=== PATIENT | male | born 1970 ===

== ENCOUNTER 2017-08-07 10:27 | Inpatient (IN) | payer BC ==
--- NOTE | 2017-08-07 10:56 | ED PDOC ---
HPI: Psych/Substance Abuse Time Seen by Provider: 08/07/17 10:45 Chief Complaint (Nursing): Substance Abuse Chief Complaint (Provider): Substance Abuse History Per: Family () Additional Complaint(s): 46 year old male presents to the emergency department accompanied by after he admitted to taking 12 pills of either Ambien or Remeron. States he had 2 empty bottles of both medications in which were both prescribed and filled with 30 tabs each. Positive for suicidal ideation and suicidal attempt. As per , denies any further medical complaints. Past Medical History Reviewed: Historical Data, Nursing Documentation, Vital Signs Vital Signs: Last Vital Signs Temp 97.6 F 08/07/17 10:36 Pulse 109 H 08/07/17 10:36 Resp 22 08/07/17 10:36 BP 142/94 H 08/07/17 10:36 Pulse Ox 97 08/07/17 10:36 - Medical History PMH: Anxiety, Back Problems, Depression, Hypercholesterolemia, Schizophrenia - Family History Family History: States: Unknown Family Hx - Home Medications Home Medications: Ambulatory Orders Medication Instructions Recorded Ergocalciferol (Vitamin D2) 50,000 unit PO MO 08/07/17 [Vitamin D2] Escitalopram [Lexapro] 40 mg PO DAILY 08/07/17 Gabapentin [Neurontin] 600 mg PO HS 08/07/17 [id number] Ethyl Esters 1 GM 2 gm PO BID 08/07/17 [Lovaza] Zolpidem [Ambien] 10 mg PO HS 08/07/17 metFORMIN [glucOPHAGE] 500 mg PO DAILY 08/07/17 - Allergies Allergies/Adverse Reactions: Allergies Allergy/AdvReac Type Severity Reaction Status Date / Time No Known Allergies Allergy Verified 08/07/17 10:36 Review of Systems Review Of Systems: ROS cannot be obtained secondary to pt's inabilty to answer questions. (unresponsive) Physical Exam - Reviewed Nursing Documentation Reviewed: Yes Vital Signs Reviewed: Yes - Physical Exam Appears: Positive for: No Acute Distress Skin: Positive for: Normal Color, Warm, Dry Eye Exam: Positive for: Other (Pinpoint pupils bilaterally) Cardiovascular/Chest: Positive for: Regular Rate, Rhythm. Negative for: Murmur Respiratory: Positive for: Normal Breath Sounds. Negative for: Accessory Muscle Use, Respiratory Distress Extremity: Positive for: Normal ROM (Moving all extremities). Negative for: Pedal Edema Neurologic/Psych: Positive for: Oriented (x2), Other (Lethargic but responsive to verbal stimuli) - Laboratory Results Result Diagrams: 08/08/17 07:24 08/07/17 11:15 - ECG O2 Sat by Pulse Oximetry: 97 (RA) Pulse Ox Interpretation: Normal Medical Decision Making Medical Decision Making: Time: 1054 Initial Impression: Drug overdose and suicide attempt Initial Plan: --Consult poison control ordered --EKG --Acetaminophen --Alcohol Serum --CMP --Drug Screen, Urine --Salicylate --CBC w/ diff --Urinalysis --Chest x-ray --Reevaluation Time: 1200 --Poison control stated to watch over patient for the next several hours. Advised to check for Tylenol and alcohol levels. Time: 1252 --chest x-ray FINDINGS: LUNGS: Clear. PLEURA: No pneumothorax or pleural fluid seen. CARDIOVASCULAR: No radiographic findings to suggest acute or significant cardiovascular disease. OSSEOUS STRUCTURES: No significant abnormalities. VISUALIZED UPPER ABDOMEN: Normal. OTHER FINDINGS: None. IMPRESSION: No active disease. Time: 1500 --Patient transferred to Dr. Moreno. --Pending crisis and reassessment. Scribe Attestation: Documented by Neela Mercedes, acting as a scribe for Janie Roa MD. Provider Scribe Attestation: All medical record entries made by the Scribe were at my direction and personally dictated by me. I have reviewed the chart and agree that the record accurately reflects my personal performance of the history, physical exam, medical decision making, and the department course for this patient. I have also personally directed, reviewed, and agree with the discharge instructions and disposition. Disposition - Clinical Impression Clinical Impression: Schizophrenia - Disposition Disposition: Transfer of Care (Dr. Moreno) Disposition Time: 15:00 Condition: STABLE Patient Signed Over To: Jorge Moreno Handoff Comments: Pending Crisis evaluation.
[2017-08-07 11:30] LABS: URINE BILIRUBIN NEGATIVE (NEGATIVE); URINE BLOOD NEGATIVE (NEGATIVE); URINE CLARITY CLEAR (Clear); URINE COLOR YELLOW (YELLOW); URINE GLUCOSE (UA) NEG (Normal); URINE LEUKOCYTE ESTERASE NEG Leu/uL (Negative); URINE PROTEIN NEGATIVE (NEGATIVE); URINE UROBILINOGEN 0.2-1.0 mg/dL (0.2-1.0)
[2017-08-07 11:31] LABS: BASO % 0.5 % (0.0-2.0); HEMOGLOBIN 13.6 g/dL (12.0-18.0); LYMPH # 1.6 K/uL (1.0-4.3); MEAN CELL VOLUME 84.9 fl (80.0-94.0); MEAN CORPUSCULAR HEMOGLOBIN 28.4 pg (27.0-31.0); MEAN CORPUSCULAR HGB CONC 33.4 g/dL (33.0-37.0); MEAN PLATELET VOLUME 10.9 fl (7.2-11.7); MONO # 0.4 K/uL (0.0-0.8); MONO % 5.7 % (0.0-10.0); NEUT # 4.2 K/uL (1.8-7.0); NEUT % 67.8 % (50.0-75.0); RBC 4.78 Mil/uL (4.40-5.90); WHITE BLOOD COUNT 6.2 K/uL (4.8-10.8)
[2017-08-07 11:39] LABS: ACETAMINOPHEN < 10.0 ug/ml (10.0-30.0); ALB/GLOB RATIO 1.5 (1.0-2.1); ALBUMIN 4.9 g/dL (3.5-5.0); ALT/SGPT 57 U/L (21-72); AST/SGOT 27 U/L (17-59); BLOOD UREA NITROGEN 9 mg/dl (9-20); CALCIUM 10.3 mg/dL (8.4-10.2); GFR AFRICAN-AMERICAN > 60; GFR NON-AFRICAN AMERICAN > 60; SALICYLATE < 1.0 mg/dl
[2017-08-07 12:02] LABS: BARBITURATES, UR NEGATIVE (NEGATIVE); BENZODIAZEPINES, UR NEGATIVE (NEGATIVE); OPIATES, UR NEGATIVE (NEGATIVE); PHENCYCLIDINE, UR NEGATIVE (NEGATIVE)
--- NOTE | 2017-08-07 12:54 | RAD ---
PROCEDURE: CHEST RADIOGRAPH, 1 VIEW HISTORY: OD COMPARISON: None available. FINDINGS: LUNGS: Clear. PLEURA: No pneumothorax or pleural fluid seen. CARDIOVASCULAR: No radiographic findings to suggest acute or significant cardiovascular disease. OSSEOUS STRUCTURES: No significant abnormalities. VISUALIZED UPPER ABDOMEN: Normal. OTHER FINDINGS: None. IMPRESSION: No active disease.
--- NOTE | 2017-08-07 15:14 | ED PDOC ---
- Laboratory Results Result Diagrams: 08/07/17 11:15 08/07/17 11:15 - ECG O2 Sat by Pulse Oximetry: 97 (RA) Pulse Ox Interpretation: Normal Medical Decision Making Medical Decision Making: Time: 1500 --Patient endorsed from Dr. Roa to me. --Pending medical clearance before crisis and reassessment. Vital signs are stable. Labs reviewed. In my opinion there are no current acute medical conditions that contraindicate the placement of this patient in a psychiatric unit. Per crisis patient will be admitted to Dr Ruvalcaba for schizophrenia Scribe Attestation: Documented by Neela Mercedes, acting as a scribe for Jorge Moreno MD. Provider Scribe Attestation: All medical record entries made by the Scribe were at my direction and personally dictated by me. I have reviewed the chart and agree that the record accurately reflects my personal performance of the history, physical exam, medical decision making, and the department course for this patient. I have also personally directed, reviewed, and agree with the discharge instructions and disposition. Disposition Doctor Will See Patient In The: Hospital Counseled Patient/Family Regarding: Studies Performed, Diagnosis - Clinical Impression Clinical Impression: Schizophrenia - POA Present On Arrival: None - Disposition Disposition: Admitted as In-Patient Disposition Time: 17:19 Condition: FAIR
[2017-08-07] MEDS ORDERED: Sodium Chloride 0.9% 1,000 ML IV STA ×2 (18:46)
[2017-08-07] MEDS ORDERED: Alum-Mag Hydrox-Simethicone Susp (30 mL) PO PRN (21:34)
[2017-08-07] MEDS ORDERED: Magnesium Hydroxide Susp 30 ml UD PO PRN (21:34)
[2017-08-07] MEDS ORDERED: DiphenhydrAMINE 50 mg/ml Inj IM PRN (21:34)
--- NOTE | 2017-08-07 22:30 | PCM.BM ---
<Kym Lucas - Last Filed: 08/07/17 22:27> Treatment Plan Problems - Problems identified on initial assessmt Suicidal Ideation Date Initiated: 08/07/17 Time Initiated: 22:27 Assessment reference: NA Status: Active Self Harm Date Initiated: 08/07/17 Time Initiated: 22:28 Assessment reference: NA Status: Active Hoplessness/ Helplessness Date Initiated: 08/07/17 Time Initiated: 22:28 Assessment reference: NA Status: Active Treatment assets and liabiliti Patient Assests: cooperative, self-reliant, ADL independent, good support system Patient Liabilities: relationship conflicts, medical problems - Milieu Protocol Maintain good personal hygiene: daily Encourage regular showers, every shift Remind patient to perform daily oral care Conduct patient checks and document Observation sheet: Q15 minutes Maintain personal safety: every shift Educate patient to report safety concerns to staff, every shift Monitor environment for contraband/sharps Medication safety: Monitor for expected outcome, potential side effects: every shift, Assess barriers to learning: every shift, Assess readiness for medication education: every shift <Deborah Rader - Last Filed: 08/11/17 16:32> Treatment assets and liabiliti Patient Assests: adapts well, cooperative, self-reliant, ADL independent, physically healthy, good support system, negotiates basic needs, good past tx response, cognitively intact, strong byron Patient Liabilities: relationship conflicts, other (limited insight into precursors to hospitalization) Family Contact Family involvement: Family/SO is involved Family contact: Patient agrees to contact, Family has been contacted by patient , Family meeting planned to review treatment plan Family contact name: Alysha()([phone]) Family contacted how many times per week?: 2 Family contact comment: Multimedia Editor met with patient and his during visitation hours on 08/10 to discuss precursors to hospitalization, progress on 3NP and aftercare. Pts reported believing that patients overdose was impulsive and pt. did not have intentions to end life. Multimedia Editor provided clinical updates and explained need for further stabilization through medication management and group /supportive therapy. Multimedia Editor emphasized importance of compliance with aftercare to ensure safety in the community and reduce risk of future hospitalizations. Pts reported having been in contact with Dr. Liriano who stated he will being seeing patient with more frequency upon discharge. Multimedia Editor to continue providing pts with clinical updates regarding progress on 3NP and discharge planing. - Outside Agency Agency 1 Care involvment: Following patient during stay, Information-sharing Agency contact name: Liriano Agency contact number: - Goals for Treatment Patient goals for treatment: Patient to continue stabilization on 3NP through medication management and group/supportive therapy. Patient to be encouraged to attend groups regularly to promote self-awareness, compliance, and improve insight, coping skills and self-esteem. Patient to be provided with referral for appropriate level of aftercare to reduce risk of future hospitalizations and ensure safety in the community. Discharge/Continuing Care - Education Needs Education Needs: Family Medication, Family Coping Skills, Family Community resources, Family Aftercare Safety Plan, Patient Medication, Patient Coping Skills, Patient Community resources, Patient Aftercare Safety Plan - Discharge Discharge Criteria: Tolerates medication w/o severe side effects, Free of Suicidal thoughts, Normal sleep pattern, Ability to care for self, Reduction of target symptoms Discharge to:: Home, With Family - Treatment Team Participation Patient/Family/SO Statement: 08/11/17 16:35 Patient superficially cooperative but pleasant during tx team. Pt. AOX4 with constricted affect and fair eye contact. Pt. well-groomed with fair ADLs. Thoughts are clear and connected. Speech: normal rate and tone. Pt. remains anxious and depressed but to a lesser degree. Pt. expressed remorse towards attempt but continues to minimize precursors to hospitalization "I swear on my savior I will never do this again. Focus is fair. Insight limited. Coping skills/Judgment impaired Pt. denies SI/HI and is able to contract for safety on 3NP. Pt. visible on unit and observed socializing appropriately with select peers. Pt. agreeable to recommended medication changes. Pt. remains discharge focused. Discussed with Family/SO: No Was Patient/Family/SO present at Treatment Team Meeting: Yes <Jason Ruvalcaba - Last Filed: 08/12/17 14:51> - Diagnosis (1) Depression Status: Acute Interventions: 08/12/17 14:50 psychotherapy, pharmacotherapy
[2017-08-08] MEDS: Insulin Lispro (humaLOG) 100 Units/ml Inj SC SCH ×4 (06:39→21:31)
[2017-08-08 07:41] LABS: BASO % 0.5 % (0.0-2.0); EOS % 0.9 % (0.0-4.0); HEMOGLOBIN 13.5 g/dL (12.0-18.0); LYMPH # 1.9 K/uL (1.0-4.3); LYMPH % 37.1 % (20.0-40.0); MEAN CELL VOLUME 85.4 fl (80.0-94.0); MEAN CORPUSCULAR HEMOGLOBIN 28.4 pg (27.0-31.0); MEAN CORPUSCULAR HGB CONC 33.3 g/dL (33.0-37.0); MEAN PLATELET VOLUME 10.3 fl (7.2-11.7); MONO # 0.4 K/uL (0.0-0.8); MONO % 8.9 % (0.0-10.0); NEUT # 2.6 K/uL (1.8-7.0); NEUT % 52.6 % (50.0-75.0); NRBC % 0.1 % (0.0-0.0); RBC 4.73 Mil/uL (4.40-5.90)
[2017-08-08 08:06] LABS: T4 7.03 ug/dl (5.5-11.0)
[2017-08-08] MEDS: Omega-3-Acid Ethyl Esters 1 GM Cap PO SCH ×2 (09:52→18:04)
--- NOTE | 2017-08-08 11:23 | CP.PCM.HP ---
History of Present Illness - History of Present Illness History of Present Illness: CC: Drug Overdose History of Present Illness: 46 year old male with H/O DMII and Schizophrenia presents to the emergency department accompanied by after he admitted to taking 12 pills of either Ambien or Remeron. States he had 2 empty bottles of both medications in which were both prescribed and filled with 30 tabs each. Positive for suicidal ideation and suicidal attempt. As per , denies any further medical complaints. Present on Admission - Present on Admission Any Indicators Present on Admission: No Review of Systems - Review of Systems All systems: reviewed and no additional remarkable complaints except - Psychiatric Psychiatric: As Per HPI Past Patient History - Infectious Disease Hx of Infectious Diseases: None - Past Medical History & Family History Past Medical History?: Yes Past Family History: Reviewed and not pertinent - Past Social History Smoking Status: Unknown If Ever Smoked Alcohol: Occasional Drugs: Denies - CARDIAC Hx Cardiac Disorders: Yes (hypercholesterolemia) Hx Hypercholesterolemia: Yes - PULMONARY Hx Respiratory Disorders: No Hx Tuberculosis: No - NEUROLOGICAL Hx Neurological Disorder: No HX Cerebrovascular Accident: No Hx Seizures: No - HEENT Hx HEENT Problems: No - RENAL Hx Chronic Kidney Disease: No Other/Comment: urinary retention - ENDOCRINE/METABOLIC Hx Diabetes Mellitus Type 2: Yes - HEMATOLOGICAL/ONCOLOGICAL Hx Blood Disorders: No Hx Cancer: No Hx Human Immunodeficiency Virus (HIV): No - INTEGUMENTARY Hx Dermatological Problems: No - MUSCULOSKELETAL/RHEUMATOLOGICAL Hx Musculoskeletal Disorders: Yes (herniated disk, back pain) Hx Herniated Disk: Yes (3,lower back) - GASTROINTESTINAL Hx Constipation: Yes (last bm=08/05/17) - GENITOURINARY/GYNECOLOGICAL Hx Genitourinary Disorders: No Hx Sexually Transmitted Disorders: No - PSYCHIATRIC Hx Bipolar Disorder: Yes Hx Depression: Yes Hx Physical Abuse: No Hx Schizophrenia: Yes Hx Sexual Abuse: No Hx Substance Use: No - SURGICAL HISTORY Hx Surgeries: Yes (2005 back surgery) Other/Comment: back surgery - ANESTHESIA Hx Anesthesia: Yes Hx Anesthesia Reactions: No Hx Malignant Hyperthermia: No Meds Allergies/Adverse Reactions: Allergies Allergy/AdvReac Type Severity Reaction Status Date / Time No Known Allergies Allergy Verified 08/07/17 10:36 Physical Exam - Constitutional Appears: Well, No Acute Distress - Head Exam Head Exam: ATRAUMATIC, NORMAL INSPECTION, NORMOCEPHALIC - Eye Exam Eye Exam: EOMI, Normal appearance, PERRL Pupil Exam: NORMAL ACCOMODATION, PERRL - ENT Exam ENT Exam: Mucous Membranes Moist, Normal Exam - Neck Exam Neck exam: Positive for: Normal Inspection - Respiratory Exam Respiratory Exam: Clear to Auscultation Bilateral, NORMAL BREATHING PATTERN - Cardiovascular Exam Cardiovascular Exam: REGULAR RHYTHM, +S1, +S2 - GI/Abdominal Exam GI & Abdominal Exam: Normal Bowel Sounds, Soft. absent: Tenderness - Extremities Exam Extremities exam: Positive for: full ROM, normal capillary refill, normal inspection - Back Exam Back exam: FULL ROM, NORMAL INSPECTION. absent: CVA tenderness (L), CVA tenderness (R) - Neurological Exam Neurological exam: Alert, CN II-XII Intact, Normal Gait, Oriented x3, Reflexes Normal - Psychiatric Exam Psychiatric exam: Depressed, Suicidal Ideation Additional comments: Auditory Hallucinations. - Skin Skin Exam: Dry, Intact, Normal Color, Warm Results - Vital Signs Recent Vital Signs: Last Vital Signs Temp 98.1 F 08/08/17 09:00 Pulse 94 H 08/08/17 09:00 Resp 20 08/08/17 09:00 BP 131/80 08/08/17 09:00 Pulse Ox 99 08/07/17 20:11 - Labs Result Diagrams: 08/08/17 07:24 08/07/17 11:15 Labs: Laboratory Results - last 24 hr 08/07/17 08/07/17 08/07/17 11:15 11:15 11:15 WBC 6.2 RBC 4.78 Hgb 13.6 Hct 40.6 MCV 84.9 MCH 28.4 MCHC 33.4 RDW 14.0 Plt Count 183 MPV 10.9 Neut % (Auto) 67.8 Lymph % (Auto) 26.0 [place] % (Auto) 5.7 Eos % (Auto) 0.0 Baso % (Auto) 0.5 Neut # (Auto) 4.2 Lymph # (Auto) 1.6 [place] # (Auto) 0.4 Eos # (Auto) 0.0 Baso # (Auto) 0.0 Sodium 146 Potassium 4.3 Chloride 100 Carbon Dioxide 27 Anion Gap 23 H BUN 9 Creatinine 1.0 Est GFR ( Amer) > 60 Est GFR (Non-Af Amer) > 60 POC Glucose (mg/dL) Random Glucose 112 H Calcium 10.3 H Total Bilirubin 0.8 AST 27 ALT 57 Alkaline Phosphatase 64 Total Protein 8.2 Albumin 4.9 Globulin 3.3 Albumin/Globulin Ratio 1.5 Triglycerides Cholesterol LDL Cholesterol Direct HDL Cholesterol Prostate Specific Ag Vitamin B12 Thyroxine (T4) TSH 3rd Generation Urine Color Urine Clarity Urine pH Ur Specific [place] Urine Protein Urine Glucose (UA) Urine Ketones Urine Blood Urine Nitrate Urine Bilirubin Urine Urobilinogen Ur Leukocyte Esterase Urine RBC (Auto) Urine Microscopic WBC Salicylates < 1.0 Urine Opiates Screen Urine Methadone Screen Acetaminophen < 10.0 L Ur Barbiturates Screen Ur Phencyclidine Scrn Ur Amphetamines Screen U Benzodiazepines Scrn U Oth Cocaine Metabols U Cannabinoids Screen Alcohol, Quantitative < 10 08/07/17 08/07/17 08/08/17 11:15 11:15 06:38 WBC RBC Hgb Hct MCV MCH MCHC RDW Plt Count MPV Neut % (Auto) Lymph % (Auto) [place] % (Auto) Eos % (Auto) Baso % (Auto) Neut # (Auto) Lymph # (Auto) [place] # (Auto) Eos # (Auto) Baso # (Auto) Sodium Potassium Chloride Carbon Dioxide Anion Gap BUN Creatinine Est GFR ( Amer) Est GFR (Non-Af Amer) POC Glucose (mg/dL) 85 Random Glucose Calcium Total Bilirubin AST ALT Alkaline Phosphatase Total Protein Albumin Globulin Albumin/Globulin Ratio Triglycerides Cholesterol LDL Cholesterol Direct HDL Cholesterol Prostate Specific Ag Vitamin B12 Thyroxine (T4) TSH 3rd Generation Urine Color Yellow Urine Clarity Clear Urine pH 6.0 Ur Specific [place] 1.010 Urine Protein Negative Urine Glucose (UA) Neg Urine Ketones Negative Urine Blood Negative Urine Nitrate Negative Urine Bilirubin Negative Urine Urobilinogen 0.2-1.0 Ur Leukocyte Esterase Neg Urine RBC (Auto) 1 Urine Microscopic WBC < 1 Salicylates Urine Opiates Screen Negative Urine Methadone Screen Negative Acetaminophen Ur Barbiturates Screen Negative Ur Phencyclidine Scrn Negative Ur Amphetamines Screen Negative U Benzodiazepines Scrn Negative U Oth Cocaine Metabols Negative U Cannabinoids Screen Negative Alcohol, Quantitative 08/08/17 08/08/17 07:24 07:24 WBC 5.0 RBC 4.73 Hgb 13.5 Hct 40.4 MCV 85.4 MCH 28.4 MCHC 33.3 RDW 14.0 Plt Count 167 MPV 10.3 Neut % (Auto) 52.6 Lymph % (Auto) 37.1 [place] % (Auto) 8.9 Eos % (Auto) 0.9 Baso % (Auto) 0.5 Neut # (Auto) 2.6 Lymph # (Auto) 1.9 [place] # (Auto) 0.4 Eos # (Auto) 0.0 Baso # (Auto) 0.0 Sodium Potassium Chloride Carbon Dioxide Anion Gap BUN Creatinine Est GFR ( Amer) Est GFR (Non-Af Amer) POC Glucose (mg/dL) Random Glucose Calcium Total Bilirubin AST ALT Alkaline Phosphatase Total Protein Albumin Globulin Albumin/Globulin Ratio Triglycerides 142 Cholesterol 188 LDL Cholesterol Direct 151 H HDL Cholesterol 35 Prostate Specific Ag 1.04 Vitamin B12 256 Thyroxine (T4) 7.03 TSH 3rd Generation 1.84 Urine Color Urine Clarity Urine pH Ur Specific [place] Urine Protein Urine Glucose (UA) Urine Ketones Urine Blood Urine Nitrate Urine Bilirubin Urine Urobilinogen Ur Leukocyte Esterase Urine RBC (Auto) Urine Microscopic WBC Salicylates Urine Opiates Screen Urine Methadone Screen Acetaminophen Ur Barbiturates Screen Ur Phencyclidine Scrn Ur Amphetamines Screen U Benzodiazepines Scrn U Oth Cocaine Metabols U Cannabinoids Screen Alcohol, Quantitative - EKG Data EKG shows normal: Sinus rhythm, [place], Intervals, QRS complexes Rate: Normal Assessment & Plan (1) Schizophrenia Assessment and Plan: Suicidal Attempt with Drug Overdose Continue Treatment as per Psych Recommendations Status: Acute Priority: High (2) DMII (diabetes mellitus, type 2) Assessment and Plan: Continue Metformin Accu-check with Low Coverage HgA1C Fasting lipid Profile Status: Chronic Priority: Low
--- NOTE | 2017-08-08 13:46 | CARD ---
APPROVED REPORT EKG Measurement Heart [id number] [id number] <Conclusion> Sinus rhythm Minimal voltage criteria for LVH, may be normal variant Nonspecific T wave abnormality Abnormal ECG
--- NOTE | 2017-08-08 14:01 | PCM.PSYCH ---
Initial Psychiatric Evaluation - Initial Psychiatric Evaluation Type of Admission: Voluntary Legal Status: Capacity Chief Complaint (in patient's own words): I lost hope, both my children do not want to know me Patient's Reaction to Hospitalization: pt requested help History of Present Illness and Precipitating Events: Pt is a 46 year old, , , Male referred to ED secondary to Suicide Attempt by overdose on ambien and xanax pt with previous diagnosis of schizophrenia 4years ago, following up with private psychaitrist with questionable compliance, pt reported has been feeling increasingly depressed hopless and helpless as his two teen age children refuse to have any relation with him , not answering his phone calls and to talk to him pt is also from his , currently unable to work , on disability pt on day of evaluation became hopless finding no reason to live and attempted suicide by overdose pt reported early insomnia poor appetite and low energy, pt on evaluation observed internally preoccupied talking to self pt denied command hallucinations reported passive suicidal ideations without plan or intent on the unit denied homicidal ideations or substance use Current Medications: Active Medications Generic Name Dose Route Start Last Admin Trade Name Freq PRN Reason Stop Dose Admin Acetaminophen 650 mg 08/07/17 21:34 Tylenol 325mg Tab PO Q4 PRN Pain, moderate (4-7) Al Hydrox/Mg Hydrox/Simethicone 30 ml 08/07/17 21:34 Maalox Plus 30 Ml PO Q4 PRN Dyspepsia Atorvastatin Calcium 20 mg 08/08/17 22:00 Lipitor PO HS DEEPTI Diphenhydramine HCl 50 mg 08/07/17 21:34 Benadryl IM Q6 PRN Extrapyramidal S/S Unable PO Diphenhydramine HCl 50 mg 08/07/17 21:34 Benadryl PO Q6 PRN Extrapyramidal Symptoms Diphenhydramine HCl 50 mg 08/07/17 21:37 Benadryl PO HS PRN Sleep Ergocalciferol 1 cap 08/11/17 06:40 Drisdol 50,000 Intl Units Cap PO MO DEEPTI Gabapentin 200 mg 08/08/17 09:00 08/08/17 13:37 Neurontin PO 200 mg TID DEEPTI Administration Haloperidol 5 mg 08/07/17 21:34 Haldol PO Q4 PRN Agitation Haloperidol Lactate 5 mg 08/07/17 21:34 Haldol IM Q4 PRN Agitation, Unable to Take PO Insulin Human Lispro 0 units 08/08/17 07:30 08/08/17 13:30 Humalog SC Not Given ACHS DEEPTI Protocol Lorazepam 2 mg 08/07/17 21:34 Ativan IM Q4 PRN Anxiety/Agitation,Unable PO Lorazepam 2 mg 08/07/17 21:34 Ativan PO Q4 PRN Anxiety/Agitation Magnesium Hydroxide 30 ml 08/07/17 21:34 Milk Of Magnesia PO HS PRN Constipation Metformin HCl 500 mg 08/08/17 08:00 08/08/17 09:52 Glucophage PO 500 mg BIDWM DEEPTI Administration Mirtazapine 15 mg 08/08/17 22:00 Remeron PO HS DEEPTI [id number] Ethyl Esters 2 gm 08/08/17 09:00 08/08/17 09:52 Lovaza PO 2 gm BID DEEPTI Administration Risperidone 0.5 mg 08/08/17 14:00 Risperdal Tab PO DAILY DEEPTI Risperidone 0.5 mg 08/08/17 22:00 Risperdal Tab PO HS DEEPTI Sennosides 8.6 mg 08/08/17 22:00 Senokot Tab PO HS DEEPTI Tamsulosin HCl 0.4 mg 08/08/17 09:00 08/08/17 09:52 Flomax PO 0.4 mg DAILY DEEPTI Administration Past Psychiatric History - Past Psychiatric History Explanation of prior treatment: diagnosed with schizophrenia 4 years ago History of ETOH/Drug Use: denied Pertinent Medical Hx (Current Medical&Sleep Prob, Allergies): Allergies Allergy/AdvReac Type Severity Reaction Status Date / Time No Known Allergies Allergy Verified 08/07/17 10:36 Ergocalciferol (Vitamin D2) [Vitamin D2] 50,000 unit PO MO 08/07/17 Escitalopram [Lexapro] 40 mg PO DAILY 08/07/17 Gabapentin [Neurontin] 600 mg PO HS 08/07/17 [id number] Ethyl Esters 1 GM [Lovaza] 2 gm PO BID 08/07/17 Zolpidem [Ambien] 10 mg PO HS 08/07/17 metFORMIN [glucOPHAGE] 500 mg PO DAILY 08/07/17 Mental Status Examination - Personal Presentation Personal Presentation: Looks stated age - Affect Affect: Constricted, Depressed - Motor Activity Motor Activity: Psychomotor Retardation - Reliability in Providing Information Reliability in Providing Information: Poor, due to alteration in thoughts, Poor , due to altered mood - Speech Speech: Relevant - Mood Mood: Depressed, Anxious - Formal Thought Process Formal Thought Process: Circumstantial - Hallucinations/Delusions Additional comments: pt observed internally preoccupied denied command hallucinations - Obsessions/Compulsions Obsessions: No Compulsions: No - Cognitive Functions Orientation: Person, Place Sensorium: Alert Abstract Thinking: [place] Judgement: Imparied, as evidence by: Poor judgement - Risk Risk: Suicidal, Diminished functioning - Strength & Assets Inventory Strength & Assets Inventory: Life experience - Limitations Additional comments: questionable compliance DSM 5 DX - DSM 5 DSM 5 Diagnosis: schizophrenia depression - Recommended/Plan of Treatment Treatment Recommendations and Plan of Treatment: remeron 15mg qhs risperidone 0.5mg bid with plan to uptitrate neurontin 200mg tid follow up on psychopharmacological effects and side effect profile group and supportive therapy
[2017-08-09] MEDS: Insulin Lispro (humaLOG) 100 Units/ml Inj SC SCH ×4 (06:50→21:11)
--- NOTE | 2017-08-09 08:21 | PCM.PYCHPN ---
Psychiatric Progress Note - Psychiatric Progress Note Patient seen today, length of contact: Patient evaluated, chart reviewed Patient Chief Complaint: "Me bobo de la fuente." Problems Identified/Issues Discussed: Patient reports that he feels "very well" and does not believe he needs to be in the hospital. He was offered the 48 hour letter, but he declined to sign it and agreed to stay for continued treatment. He denies current SI/HI. He reports that he attemped suicide because he felt like his kids hated him, but he spoke with his kids and they reassured him that that is not true. He was agreeable to increasing the Risperdal. He continues to have AH that sounds like a cricket. Denies other AH/VH/paranoia. Medication Change: Yes (Increase Risperdal) Medical Record Reviewed: Yes Consults ordered or reviewed: Medicine consult Mental Status Examination - Cognitive Function Orientation: Person, Place, Situation Memory: Intact Attention: WNL Concentration: WNL Association: WN Fund of Knowledge: [facility] Decription of patient's judgement and insights: Poor I/J - Mood Mood: Neutral - Affect Affect: Other (Inappropriately happy) - Speech Speech: Appropriate - Formal Thought Process Formal Thought Process: Hallucinations Psychotic Thoughts and Behaviors: Hears cricket sounds - Suicidal Ideation Suicidal Ideation: No - Homicidal Ideation Homicidal Ideation: No Goal/Treatment Plan - Goal/Treatment Plan Need for Continued Stay: Remain at risks for inpatient hospitalization, Discharge may exacerbated symptoms Progress Toward Problem(s) and Goals/Treatment Plan: Schizophrenia; Depression -Individual and group therapy -Continue Remeron -Increase Risperdal to 1 mg PO Q12 -Continue Neurontin -Medicine consult -Psychoeducation -Disposition planning Estimated Date of D/C: 08/12/17
[2017-08-09] MEDS: Omega-3-Acid Ethyl Esters 1 GM Cap PO SCH ×2 (09:40→16:32)
--- NOTE | 2017-08-10 00:32 | CP.PCM.PN ---
Subjective - Date & Time of Evaluation Date of Evaluation: 08/09/17 Time of Evaluation: 17:30 - Subjective Subjective: Seen and and Examined. Constipation, and did not go for the last 3 days but claims to have a normal bowel habit of 3-4 days. Objective - Vital Signs/Intake and Output Vital Signs (last 24 hours): Temp Pulse Resp BP Pulse Ox 97.5 F L 105 H 20 149/88 99 08/09/17 17:00 08/09/17 17:00 08/09/17 17:00 08/09/17 17:00 08/07/17 20:11 - Medications Medications: Current Medications Acetaminophen (Tylenol 325mg Tab) 650 mg PO Q4 PRN PRN Reason: Pain, moderate (4-7) Al Hydrox/Mg Hydrox/Simethicone (Maalox Plus 30 Ml) 30 ml PO Q4 PRN PRN Reason: Dyspepsia Atorvastatin Calcium (Lipitor) 20 mg PO HS [facility] Last Admin: 08/09/17 21:06 Dose: 20 mg Diphenhydramine HCl (Benadryl) 50 mg IM Q6 PRN PRN Reason: Extrapyramidal S/S Unable PO Diphenhydramine HCl (Benadryl) 50 mg PO Q6 PRN PRN Reason: Extrapyramidal Symptoms Diphenhydramine HCl (Benadryl) 50 mg PO HS PRN PRN Reason: Sleep Ergocalciferol (Drisdol 50,000 Intl Units Cap) 1 cap PO MO [facility] Gabapentin (Neurontin) 200 mg PO TID [facility] Last Admin: 08/09/17 17:03 Dose: 200 mg Haloperidol (Haldol) 5 mg PO Q4 PRN PRN Reason: Agitation Haloperidol Lactate (Haldol) 5 mg IM Q4 PRN PRN Reason: Agitation, Unable to Take PO Insulin Human Lispro (Humalog) 0 units SC [facility] PRN Reason: Protocol Last Admin: 08/09/17 21:11 Dose: Not Given Lorazepam (Ativan) 2 mg IM Q4 PRN PRN Reason: Anxiety/Agitation,Unable PO Lorazepam (Ativan) 2 mg PO Q4 PRN PRN Reason: Anxiety/Agitation Magnesium Hydroxide (Milk Of Magnesia) 30 ml PO HS PRN PRN Reason: Constipation Metformin HCl (Glucophage) 500 mg PO BIDWM [facility] Last Admin: 08/09/17 16:32 Dose: 500 mg Mirtazapine (Remeron) 15 mg PO [facility] Last Admin: 08/09/17 21:06 Dose: 15 mg [id number] Ethyl Esters (Lovaza) 2 gm PO BID [facility] Last Admin: 08/09/17 16:32 Dose: 2 gm Risperidone (Risperdal Tab) 1 mg PO Q12 [facility] Last Admin: 08/09/17 21:06 Dose: 1 mg Sennosides (Senokot Tab) 8.6 mg PO [facility] Last Admin: 08/09/17 21:06 Dose: 8.6 mg Tamsulosin HCl (Flomax) 0.4 mg PO DAILY [facility] Last Admin: 08/09/17 09:40 Dose: 0.4 mg - Labs Labs: 08/08/17 07:24 08/07/17 11:15 - Constitutional Appears: Well, No Acute Distress - Head Exam Head Exam: ATRAUMATIC, NORMAL INSPECTION, NORMOCEPHALIC - Eye Exam Eye Exam: EOMI, Normal appearance, PERRL Pupil Exam: NORMAL ACCOMODATION, PERRL - ENT Exam ENT Exam: Mucous Membranes Moist, Normal Exam - Neck Exam Neck Exam: Full ROM, Normal Inspection. absent: Lymphadenopathy - Respiratory Exam Respiratory Exam: Clear to Ausculation Bilateral, NORMAL BREATHING PATTERN - Cardiovascular Exam Cardiovascular Exam: REGULAR RHYTHM, +S1, +S2. absent: Murmur - GI/Abdominal Exam GI & Abdominal Exam: Soft, Normal Bowel Sounds. absent: Tenderness - Extremities Exam Extremities Exam: Full ROM, Normal Capillary Refill, Normal Inspection. absent : Joint Swelling, Pedal Edema - Back Exam Back Exam: NORMAL INSPECTION - Neurological Exam Neurological Exam: Alert, Awake, CN II-XII Intact, Normal Gait, Oriented x3 - Psychiatric Exam Additional comments: Auditory Hallucinations. - Skin Skin Exam: Dry, Intact, Normal Color, Warm Assessment and Plan (1) Schizophrenia Assessment & Plan: Continue Psych Recommendation Status: Acute (2) DMII (diabetes mellitus, type 2) Assessment & Plan: Continue the same Care Status: Chronic
[2017-08-10] MEDS: Insulin Lispro (humaLOG) 100 Units/ml Inj SC SCH ×4 (06:49→21:16)
[2017-08-10] MEDS: Omega-3-Acid Ethyl Esters 1 GM Cap PO SCH ×2 (09:49→18:11)
[2017-08-10 10:34] VITALS: O2SAT 97
--- NOTE | 2017-08-10 12:18 | PCM.PYCHPN ---
Psychiatric Progress Note - Psychiatric Progress Note Patient seen today, length of contact: Patient evaluated, chart reviewed Patient Chief Complaint: "I'm good." Problems Identified/Issues Discussed: Patient reports that his mood is good. He is goal oriented and would like to leave the hospital to see his children. He reports that he only hears faint sounds of crickets, but denies other AH. No adverse effects to medications reported. Medication Change: No Medical Record Reviewed: Yes Consults ordered or reviewed: Medicine consult Mental Status Examination - Cognitive Function Orientation: Person, Place, Situation, Time Memory: Intact Attention: WNL Concentration: WNL Association: [facility] Fund of Knowledge: [facility] Decription of patient's judgement and insights: Poor I/J - Mood Mood: Neutral - Affect Affect: Other (Inappropriately happy) - Speech Speech: Appropriate - Formal Thought Process Formal Thought Process: Hallucinations Psychotic Thoughts and Behaviors: Hears cricket sounds - Suicidal Ideation Suicidal Ideation: No - Homicidal Ideation Homicidal Ideation: No Goal/Treatment Plan - Goal/Treatment Plan Need for Continued Stay: Remain at risks for inpatient hospitalization, Discharge may exacerbated symptoms Progress Toward Problem(s) and Goals/Treatment Plan: Schizophrenia; Depression -Individual and group therapy -Continue Remeron -Continue Risperdal 1 mg PO Q12 -Continue Neurontin -Medicine consult -Psychoeducation -Disposition planning Estimated Date of D/C: 08/12/17
--- NOTE | 2017-08-10 18:51 | CP.PCM.PN ---
Subjective - Date & Time of Evaluation Date of Evaluation: 08/10/17 Time of Evaluation: 11:00 - Subjective Subjective: No New Complaint. BS well controlled and Accu-check changed t once daily. Continues to have auditory Hallucination as per the psychiatrist note. Objective - Vital Signs/Intake and Output Vital Signs (last 24 hours): Temp Pulse Resp BP Pulse Ox 98.1 F 88 18 128/87 97 08/10/17 09:00 08/10/17 09:00 08/10/17 09:00 08/10/17 09:00 08/10/17 10:35 - Medications Medications: Current Medications Acetaminophen (Tylenol 325mg Tab) 650 mg PO Q4 PRN PRN Reason: Pain, moderate (4-7) Al Hydrox/Mg Hydrox/Simethicone (Maalox Plus 30 Ml) 30 ml PO Q4 PRN PRN Reason: Dyspepsia Atorvastatin Calcium (Lipitor) 20 mg PO HS [facility] Last Admin: 08/09/17 21:06 Dose: 20 mg Diphenhydramine HCl (Benadryl) 50 mg IM Q6 PRN PRN Reason: Extrapyramidal S/S Unable PO Diphenhydramine HCl (Benadryl) 50 mg PO Q6 PRN PRN Reason: Extrapyramidal Symptoms Diphenhydramine HCl (Benadryl) 50 mg PO HS PRN PRN Reason: Sleep Ergocalciferol (Drisdol 50,000 Intl Units Cap) 1 cap PO MO [facility] Gabapentin (Neurontin) 200 mg PO TID [facility] Last Admin: 08/10/17 18:10 Dose: 200 mg Haloperidol (Haldol) 5 mg PO Q4 PRN PRN Reason: Agitation Haloperidol Lactate (Haldol) 5 mg IM Q4 PRN PRN Reason: Agitation, Unable to Take PO Insulin Human Lispro (Humalog) 0 units SC A[facility]S [facility] PRN Reason: Protocol Last Admin: 08/10/17 18:12 Dose: Not Given Lorazepam (Ativan) 2 mg IM Q4 PRN PRN Reason: Anxiety/Agitation,Unable PO Lorazepam (Ativan) 2 mg PO Q4 PRN PRN Reason: Anxiety/Agitation Magnesium Hydroxide (Milk Of Magnesia) 30 ml PO HS PRN PRN Reason: Constipation Metformin HCl (Glucophage) 500 mg PO BIDWM [facility] Last Admin: 08/10/17 18:14 Dose: 500 mg Mirtazapine (Remeron) 15 mg PO HS [facility] Last Admin: 08/09/17 21:06 Dose: 15 mg [id number] Ethyl Esters (Lovaza) 2 gm PO BID [facility] Last Admin: 08/10/17 18:11 Dose: 2 gm Risperidone (Risperdal Tab) 1 mg PO Q12 [facility] Last Admin: 08/10/17 09:48 Dose: 1 mg Sennosides (Senokot Tab) 8.6 mg PO HS [facility] Last Admin: 08/09/17 21:06 Dose: 8.6 mg Tamsulosin HCl (Flomax) 0.4 mg PO DAILY [facility] Last Admin: 08/10/17 09:48 Dose: 0.4 mg - Labs Labs: 08/08/17 07:24 08/07/17 11:15 Assessment and Plan (1) Schizophrenia Assessment & Plan: Continue Rx as per psych recommendations. Status: Acute (2) DMII (diabetes mellitus, type 2) Assessment & Plan: Continue Metformin Accucheck Daily Status: Chronic
[2017-08-11] MEDS ORDERED: Ergocalciferol 50,000 Intl Units Cap PO SCH (06:40)
[2017-08-11] MEDS: Omega-3-Acid Ethyl Esters 1 GM Cap PO SCH ×2 (08:23→17:14)
[2017-08-11] MEDS: Insulin Lispro (humaLOG) 100 Units/ml Inj SC SCH ×4 (08:26→21:09)
--- NOTE | 2017-08-11 16:03 | PCM.PYCHPN ---
Psychiatric Progress Note - Psychiatric Progress Note Patient seen today, length of contact: Patient evaluated, chart reviewed Patient Chief Complaint: I AM FEELING BETTER VOICES ARE VERY FAINT Problems Identified/Issues Discussed: pt evaluated with treatment team, reporting better mood stating feeling less depressed, pt acknowledges the need to work on coping skills, and agreed on the need for therapy on discharge, pt denied any current suicidal ideations and stated that he will try to work on his relation with his children on discharge possibly throught therapy, pt denied command halluciantions and reported very faint non command voices no reported side effects of medications , no reported changes in sleep or appetite Medical Problems: diagnosed with schizophrenia 4 years ago DSM 5 Symptoms Update: schizoaffective disorder depressed Medication Change: Yes (increase risperidone to 2.5mg) Medical Record Reviewed: Yes Mental Status Examination - Cognitive Function Orientation: Person, Place, Situation, Time Memory: Intact Attention: WNL Concentration: WNL Association: WN Fund of Knowledge: WNL - Mood Mood: Neutral - Affect Affect: Other (Inappropriately happy) - Speech Speech: Appropriate - Formal Thought Process Formal Thought Process: Hallucinations Additional comments: pt reported faint non command auditory hallucinations - Suicidal Ideation Suicidal Ideation: No - Homicidal Ideation Homicidal Ideation: No Goal/Treatment Plan - Goal/Treatment Plan Need for Continued Stay: Remain at risks for inpatient hospitalization, Discharge may exacerbated symptoms Progress Toward Problem(s) and Goals/Treatment Plan: remeron 15mg qhs increase risperidone to 1mg daily and 1.5mg qhs neurontin 200mg tid follow up on psychopharmacological effects and side effect profile group and supportive therapy Estimated Date of D/C: 08/12/17
--- NOTE | 2017-08-12 01:49 | CP.PCM.PN ---
Subjective - Date & Time of Evaluation Date of Evaluation: 08/11/17 Time of Evaluation: 14:10 Objective - Vital Signs/Intake and Output Vital Signs (last 24 hours): Temp Pulse Resp BP Pulse Ox 97.7 F 114 H 18 146/95 H 97 08/11/17 17:00 08/11/17 17:00 08/11/17 17:00 08/11/17 17:00 08/10/17 10:35 - Medications Medications: Current Medications Acetaminophen (Tylenol 325mg Tab) 650 mg PO Q4 PRN PRN Reason: Pain, moderate (4-7) Al Hydrox/Mg Hydrox/Simethicone (Maalox Plus 30 Ml) 30 ml PO Q4 PRN PRN Reason: Dyspepsia Atorvastatin Calcium (Lipitor) 20 mg PO HS [facility] Last Admin: 08/11/17 21:04 Dose: 20 mg Diphenhydramine HCl (Benadryl) 50 mg IM Q6 PRN PRN Reason: Extrapyramidal S/S Unable PO Diphenhydramine HCl (Benadryl) 50 mg PO Q6 PRN PRN Reason: Extrapyramidal Symptoms Diphenhydramine HCl (Benadryl) 50 mg PO HS PRN PRN Reason: Sleep Ergocalciferol (Drisdol 50,000 Intl Units Cap) 1 cap PO MO [facility] Last Admin: 08/11/17 10:32 Dose: 1 cap Gabapentin (Neurontin) 200 mg PO TID [facility] Last Admin: 08/11/17 17:15 Dose: 200 mg Haloperidol (Haldol) 5 mg PO Q4 PRN PRN Reason: Agitation Haloperidol Lactate (Haldol) 5 mg IM Q4 PRN PRN Reason: Agitation, Unable to Take PO Insulin Human Lispro (Humalog) 0 units SC ACHS [facility] PRN Reason: Protocol Last Admin: 08/11/17 21:09 Dose: Not Given Lorazepam (Ativan) 2 mg IM Q4 PRN PRN Reason: Anxiety/Agitation,Unable PO Lorazepam (Ativan) 2 mg PO Q4 PRN PRN Reason: Anxiety/Agitation Magnesium Hydroxide (Milk Of Magnesia) 30 ml PO HS PRN PRN Reason: Constipation Metformin HCl (Glucophage) 500 mg PO BIDWM [facility] Last Admin: 08/11/17 17:15 Dose: 500 mg Mirtazapine (Remeron) 15 mg PO [facility] Last Admin: 08/11/17 21:04 Dose: 15 mg [id number] Ethyl Esters (Lovaza) 2 gm PO BID [facility] Last Admin: 08/11/17 17:14 Dose: 2 gm Risperidone (Risperdal M-Tab) 1 mg PO DAILY [facility] Risperidone (Risperdal Tab) 1.5 mg PO [facility] Last Admin: 08/11/17 21:05 Dose: 1.5 mg Sennosides (Senokot Tab) 8.6 mg PO [facility] Last Admin: 08/10/17 21:17 Dose: 8.6 mg Tamsulosin HCl (Flomax) 0.4 mg PO DAILY [facility] Last Admin: 08/11/17 08:23 Dose: 0.4 mg - Labs Labs: 08/08/17 07:24 08/07/17 11:15 Assessment and Plan (1) Schizophrenia Status: Acute (2) DMII (diabetes mellitus, type 2) Status: Chronic
[2017-08-12] MEDS: Insulin Lispro (humaLOG) 100 Units/ml Inj SC SCH ×4 (07:30→22:00)
[2017-08-12] MEDS: Risperidone M tab 1 MG PO SCH (08:20)
[2017-08-12] MEDS: Omega-3-Acid Ethyl Esters 1 GM Cap PO SCH ×2 (08:20→17:14)
[2017-08-12 09:06] VITALS: RESP 20
--- NOTE | 2017-08-12 15:14 | PCM.PYCHPN ---
Psychiatric Progress Note - Psychiatric Progress Note Patient seen today, length of contact: Patient evaluated, chart reviewed Patient Chief Complaint: I AM FINE TODAY Problems Identified/Issues Discussed: pt evaluated CALM , COOPERATIVE REPORTED BETTER MOOD, BRIGHTER AFFECT, PARTICIPATING IN GROUPS, PT REPORTED CLEARING OFF OF THE AUDITORY HALLUCINATIONS , DENIED ANY CURRENT SUICIDAL OR HOMICIDAL IDEATIONS DENIED PERCEPTUAL DISTURBANCES , NO SIDE EFFECTS WITH THE INCREASE IN THE DOSE OF RISPERIDONE Medical Problems: diagnosed with schizophrenia 4 years ago DSM 5 Symptoms Update: SCHIZOAFFECTIVE DISORDER DEPRESSED Medication Change: No (increase risperidone to 2.5mg) Medical Record Reviewed: Yes Mental Status Examination - Cognitive Function Orientation: Person, Place, Situation, Time Memory: Intact Attention: WNL Concentration: WNL Association: WNL Fund of Knowledge: WNL - Mood Mood: Neutral - Affect Affect: Constricted, Other (Inappropriately happy) - Speech Speech: Appropriate - Formal Thought Process Formal Thought Process: Circumstantial Psychotic Thoughts and Behaviors: PT REPORTED CLEARING OFF OF THE AUDITORY HALLUCINATIONS - Suicidal Ideation Suicidal Ideation: No - Homicidal Ideation Homicidal Ideation: No Goal/Treatment Plan - Goal/Treatment Plan Need for Continued Stay: Remain at risks for inpatient hospitalization, Discharge may exacerbated symptoms Progress Toward Problem(s) and Goals/Treatment Plan: remeron 15mg qhs risperidone 1mg daily and 1.5mg qhs neurontin 200mg tid follow up on psychopharmacological effects and side effect profile group and supportive therapy Estimated Date of D/C: 08/12/17
[2017-08-13] MEDS: Insulin Lispro (humaLOG) 100 Units/ml Inj SC SCH (06:32)
[2017-08-13] MEDS: Omega-3-Acid Ethyl Esters 1 GM Cap PO SCH (08:27)
[2017-08-13] MEDS: Risperidone M tab 1 MG PO SCH (08:28)
[2017-08-13 08:53] VITALS: BP 135/88; PULSE 103; TEMP 97
--- NOTE | 2017-08-13 09:57 | PCM.PYCHDC ---
Mental Status Examination - Mental Status Examination Orientation: Person, Place, Situation Memory: Intact Mood: Neutral Affect: Broad Speech: Appropriate Attention: WNL Concentration: WNL Association: WNL Fund of Knowledge: WNL Formal Thought Process: No Impairment Description of patient's judgement and insight: fair insight and judgement Psychotic Thoughts and Behaviors: PT REPORTED CLEARING OFF OF THE AUDITORY HALLUCINATIONS Suicidal Ideation: No Current Homicidal Ideation?: No Discharge Summary - Discharge Note Reason for Hospitalization: Pt is a 46 year old, , , Male referred to ED secondary to Suicide Attempt by overdose on ambien and xanax pt with previous diagnosis of schizophrenia 4years ago, following up with private psychaitrist with questionable compliance, pt reported has been feeling increasingly depressed hopless and helpless as his two teen age children refuse to have any relation with him , not answering his phone calls and to talk to him pt is also from his , currently unable to work , on disability pt on day of evaluation became hopless finding no reason to live and attempted suicide by overdose pt reported early insomnia poor appetite and low energy, pt on evaluation observed internally preoccupied talking to self pt denied command hallucinations reported passive suicidal ideations without plan or intent on the unit denied homicidal ideations or substance use Laboratory Data: Abnormal Lab Results 08/12/17 08/12/17 08/12/17 12:40 17:20 20:31 POC Glucose (mg/dL) 93 91 126 H 08/13/17 06:29 POC Glucose (mg/dL) 83 Consultations:: List each consultation separately and include: 1. Reason for request. 2. Findings. 3. Follow-up Summary of Hospital Course include:: 1. Description of specific treatment plan utilized for patients during their course of treatmen. 2. Summarize the time- course for resolution of acute symptoms and/or regressed behaviors. 3. Describe issues identified and worked on during hospitalization. 4. Describe medication utilized. 5. Describe medical problems identified and treated. 6. Reassessment of suicide risk Summary of Hospital Course: Pt on admission was presenting with depressed mood and affect and non command auditory hallucinations, pt was started on risperidone , it was uptitrated to 2.5mg daily, pt was also continued on remeron and neurontin CBT and group therapy provided, pt was compliant with treatment , attended groups , no reported side effects of medications was updated with treatment plan upon pt consent on discharge pt mental status was stable, denied suicidal or homicidal ideations denied any current perceptual disturbances follow up was arranged with private psychiatrist - Diagnosis (1) Depression Current Visit: Yes Status: Acute - Final Diagnosis (DSM 5) Condition upon Discharge: STABLE DSM 5: schizoaffective disorder depressed Disposition: HOME/ ROUTINE Follow-up Treatment Plan: remeron 15mg qhs risperidone 1mg daily and 1.5mg qhs neurontin 200mg tid follow up on psychopharmacological effects and side effect profile group and supportive therapy Prescriptions/Medication Reconciliation: Gabapentin [Neurontin] 200 mg PO TID 30 Days #90 cap metFORMIN [glucOPHAGE] 500 mg PO BIDWM 15 Days #30 tab Mirtazapine [Remeron] 15 mg PO HS 30 Days #30 tab risperiDONE [RisperDAL Tab] 1.5 mg PO HS 30 Days #90 tab Risperidone [Risperdal M-TAB] 1 mg PO DAILY 30 Days #30 odt - Antipsychotic Medications Pt discharged on 2 or more routine antipsychotic medications: No
== END 2017-08-13 13:01 | disposition home or self-care (01) | DRG 885 ==
LOC: H.ER 10:27 → H.ERHOLD 17:19 → H.PSYCH 20:53
PROVIDERS: ADMIT Psychiatry & Neurology Psychiatry; ATTEND Psychiatry & Neurology Psychiatry
PROC: GZHZZZZ Group Psychotherapy (ICD-10-PCS; principal; 2017-08-08)
PROC: GZ51ZZZ Individual Psychotherapy, Behavioral (ICD-10-PCS; 2017-08-08)
DX: F25.9 Schizoaffective disorder, unspecified (principal); E11.9 Type 2 diabetes mellitus without complications; E78.00 Pure hypercholesterolemia, unspecified; F31.9 Bipolar disorder, unspecified; K59.00 Constipation, unspecified; T42.4X2A Poisoning by benzodiazepines, intentional self-harm, initial encounter; T42.6X2A Poisoning by other antiepileptic and sedative-hypnotic drugs, intentional self-harm, initial encounter; Z79.899 Other long term (current) drug therapy; F41.9 Anxiety disorder, unspecified; Z79.84 Long term (current) use of oral hypoglycemic drugs; Y92.9 Unspecified place or not applicable